=== PATIENT | male | born 1940 | race Caucasian/White ===

== ENCOUNTER → 2017-05-13 09:50 | Outpatient (CLI) | payer MEDICARE, SELFPAY ==
[2017-05-13 12:29] LABS: Anion Gap 4 (5-15); BUN 23 mg/dL (7-18); BUN/Creat Ratio 20.4 RATIO (10-20); Calcium,Total 8.8 mg/dL (8.5-10.1); Chloride 108 mmol/L (98-107); Cholesterol 158 mg/dL (200); Creatinine, Serum 1.13 mg/dL (0.70-1.30); EST Glomerular Filtration Rate 67 mL/min (>60); Est Glom Filt Rate - Afr Amer 81 mL/min (>60); Glucose 93 mg/dL (74-106); High Density Lipoprotein 36 mg/dL; PSA,Total - Annual Screen 1.99 ng/mL (0.00-4.00); Potassium 4.3 mmol/L (3.5-5.1); Sodium Level 140 mmol/L (136-145); Triglycerides 88 mg/dL; Very Low Density Lipoprotein 18 mg/dL (5-40)
== END ==
DX: E78.5 Hyperlipidemia, unspecified (principal); Z12.5 Encounter for screening for malignant neoplasm of prostate
CPT/HCPCS: 36415; 80048; 80061; 84153; G0103

== ENCOUNTER → 2017-06-30 11:29 | Outpatient (CLI) | payer MEDICARE, SELFPAY ==
--- NOTE | 2017-06-30 11:39 | RAD_ITS ---
STUDY: X-RAY CHEST REASON FOR EXAM: Male, 76 years old. Nonproductive cough TECHNIQUE: Single AP portable view of the chest. COMPARISON: None. FINDINGS: The lungs are clear and expanded. There is no demonstrated pleural abnormality. Normal size heart. Normal mediastinum and kai. Normal visualized pulmonary arteries. Normal visualized aortic arch and descending thoracic aorta. Normal visualized thoracic spine. Normal visualized ribs, clavicles, and shoulders. There is no demonstrated abnormality of the visualized soft tissue structures of the upper abdomen. RAD/Chest PA and Lateral IMPRESSION: Normal x-ray examination of the chest. Electronically Signed: Raza Mcgee MD at 11:55 EDT , Service support ,
== END ==
DX: J44.9 Chronic obstructive pulmonary disease, unspecified (principal)
CPT/HCPCS: 71046

== ENCOUNTER → 2018-05-22 08:27 | Outpatient (CLI) | payer MEDICARE, SELFPAY ==
[2018-05-22 11:02] LABS: Anion Gap 8 (5-15); BUN 22 mg/dL (7-18); BUN/Creat Ratio 19.3 RATIO (10-20); Calcium,Total 8.5 mg/dL (8.5-10.1); Chloride 104 mmol/L (98-107); Cholesterol 167 mg/dL (200); Creatinine, Serum 1.14 mg/dL (0.70-1.30); EST Glomerular Filtration Rate 66 mL/min (>60); Est Glom Filt Rate - Afr Amer 80 mL/min (>60); Glucose 99 mg/dL (74-106); High Density Lipoprotein 38 mg/dL; PSA,Total - Annual Screen 2.79 ng/mL (0.00-4.00); Potassium 4.1 mmol/L (3.5-5.1); Sodium Level 138 mmol/L (136-145); T4 Free Direct 1.07 ng/dL (0.76-1.46); Triglycerides 70 mg/dL; Very Low Density Lipoprotein 14 mg/dL (5-40)
--- OUTSIDE RECORDS SUMMARY | 2018-06-28 23:40 | XMS RPT_ITS ---
:1940 Author Organization [facility] Care Team Providers Name Role Phone SRINIVAS RUTLEDGE Attending Unavailable SRINIVAS RUTLEDGE Referring Unavailable SRINIVAS RUTLEDGE Primary Care Unavailable Jhonny Gunderson Attending Unavailable Jhonny Gunderson Referring Unavailable SRINIVAS RUTLEDGE Primary Care Unavailable SRINIVAS RUTLEDGE Attending Unavailable SRINIVAS RUTLEDGE Referring Unavailable SRINIVAS RUTLEDGE Primary Care Unavailable SRINIVAS RUTLEDGE Attending Unavailable SRINIVAS RUTLEDGE Referring Unavailable SRINIVAS RUTLEDGE Primary Care Unavailable PROBLEMS PROBLEMS DATE TYPE CONDITION / CODE ATTENDING STATUS SOURCE 04/24/2018 Unknown E03.9 - SRINIVAS RUTLEDGE Active [facility] Hypothyroidism, [facility] unspecified / Hospital E03.9(ICD-10) Repository 04/24/2018 Unknown E78.5 - SRINIVAS RUTLEDGE Active [facility] Hyperlipidemia, Community unspecified / Hospital E78.5(ICD-10) Repository 07/25/2017 Unknown R22.1 - Localized Jhonny Gunderson Active [place] swelling, mass Community and lump, neck / Hospital R22.1(ICD-10) Repository 06/30/2017 Unknown 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 STUDY: X-RAY CHEST REASON FOR EXAM: Male, 76 years old. Nonproductive cough TECHNIQUE: Single AP portable view of the chest. COMPARISON: None. FINDINGS: The lungs are clear and expanded. There is no demonstrated pleural abnormality. Normal size heart. Normal mediastinum and kai. Normal visualized pulmonary arteries. Normal visualized aortic arch and descending thoracic aorta. Normal visualized thoracic spine. Normal visualized ribs, clavicles, and shoulders. There is no demonstrated abnormality of the visualized soft tissue structures of the upper abdomen. RAD/Chest PA and Lateral IMPRESSION: Normal x-ray examination of the chest. Electronically Signed: Raza Mcgee MD at 11:55 EDT , Service support , CC: [facility] DOCTOR Weed Thinner: Signed BASIC METABOLIC Collected: 05/13/2017 Status: F Source: NICOLE PROFILE (BMP) 10:01 AM [facility] REPOSITORY TYPE CODE TESTS RESULT OUT OF RANGE REFERENCE UNITS LAB L501.0100 74-106 mg/dL Normal GLU 93 LAB L501.1000 7-18 mg/dL High BUN 23 LAB L501.1100 0.70-1.30 mg/dL Normal 1.13 CREAT,SERUM Result Comment: The validity of the calculated GFR AND GFRAA in patients over 70 years has not been determined. Clinical correlation is essential. LAB L501.1110 >60 mL/min Normal EST GFR 67 Result Comment: Non- GFR Calc LAB L501.1115 >60 mL/min Normal EST GFR - AA 81 Result Comment: GFR Calc LAB L501.1300 10-20 RATIO High BUN/CRE 20.4 LAB L501.2200 8.5-10.1 mg/dL CA Normal 8.8 LAB L501.5300 136-145 mmol/L NA Normal 140 LAB L501.5600 3.5-5.1 mmol/L K Normal 4.3 LAB L501.5900 98-107 mmol/L High CL 108 LAB L501.6100 21.0-32.0 mmol/L Normal CO2 28.0 LAB L501.6200 5-15 Low GAP 4 Performed By: #### L500.2500, L500.4100, L501.9910 #### [facility] [address] [place], [address] LIPID PROFILE Collected: 05/13/2017 Status: F Source: ELGIN 10:01 AM [facility] REPOSITORY TYPE CODE TESTS RESULT OUT OF RANGE REFERENCE UNITS LAB L501.4900 200 mg/dL Normal CHOL 158 Result Comment: <200 mg/dL Desirable 200-240 mg/dL Borderline >240 mg/dL High Risk LAB L501.5000 mg/dL Normal TRIG 88 Result Comment: The drugs N-Acetylcysteine and Metamizole may falsely depress this assay. Serum Triglycerides Reference Interval Normal <150 mg/dL Borderline high 150 - 199 mg/dL High 200 - 499 mg/dL Very High > or = 500 mg/dL LAB L501.6400 mg/dL Low HDL 36 Result Comment: The drugs N-Acetylcysteine and Metamizole may falsely depress this assay. Reference Range HDL <40 mg/dL Low HDL Cholesterol HDL >or= 60 mg/dL High HDL Cholesterol LAB L501.6500 0-130 mg/dL Normal LDL 104 LAB L501.6600 5-40 mg/dL Normal VLDL 18 Performed By: #### L500.2500, L500.4100, L501.9910 #### [facility] [address] [place], [address] PSA,TOTAL - ANNUAL Collected: 05/13/2017 Status: F Source: NICOLE SCREEN 10:01 AM [facility] REPOSITORY TYPE CODE TESTS RESULT OUT OF RANGE REFERENCE UNITS LAB L501.9910 0.00-4.00 ng/mL Normal PSA,TOT 1.99 SCREEN Result Comment: This test was performed using the TPSA assay method for the [employer] chemistry system. Values obtained with different assay methods cannot be used interchangably. When changing PSA assays in the course of monitoring a patient, additional sequential testing should be carried out to confirm baseline values. Performed By: #### L500.2500, L500.4100, L501.9910 #### [facility] [address] [place], [address] ALLERGIES ALLERGIES No Allergies Records FoundENCOUNTERS ENCOUNTERS ADMIT/DISCHARGE ACCOUNT ADMITTING ENCOUNTER LOCATION SOURCE NUMBER CLASS 04/24/2018 [id number] Ambulatory [facility] 6 [facility] ing:MTLAB Repository 07/31/2017 [id number] Ambulatory [place] Nicole 3 [facility] ing:LAB Repository 06/30/2017 [id number] Ambulatory Nicole [facility] 5 [facility] ing:MTRAD Repository 05/13/2017 [id number] Ambulatory Nicole Nicole 0 [facility] ing:MTLAB Repository PAYERS PAYERS ENCOUNTER GUARANTOR PAYER SUBSCRIBER SOURCE 04/24/2018 Tyrone Davis Primary Tyrone Gamezyusuf [id number] TR Insurance:CHET SorensonB: [facility] [address] MEDICARE [facility] [id number] Hospital [address]Ver: [phone]) Number: Repository [phone] () [id number] Date:5438-25-26VB [id number] [place] [address]YE: 04/24/2018 Secondary NOT GIVENUNK Nicole Insurance:SELF PAY [facility] Number: Effective Repository Date:2018-04-24 07/31/2017 Tyrone Davis Primary Tyrone Rivera [id number] TR Insurance:CHET SorensonB: [facility] [address], [place] MEDICARE PPOPolicy [id number] Hospital [address]Hwt: [phone]) Number: Repository [phone] () [id number] Date:0763-06-63MQ [address] [place] [address]MS: 07/31/2017 Secondary NOT GIVENUNK [place] Insurance:SELF PAY [facility] Number: Effective Repository Date:2017-07-25 06/30/2017 Tyrone Davis Primary Tyrone Rivera [id number] TR Insurance:ANTHEM WileyDOB: Community [address] MEDICARE PPOPolicy [id number] Hospital [address]Sqo: [phone] Number: Repository [phone] () [id number] Date:5851-60-46CD [id number] [place] [address]ZV: 06/30/2017 Secondary NOT GIVENUNK Nicole Insurance:SELF PAY [facility] Number: Effective Repository Date:2017-06-30 05/13/2017 Tyrone C Primary Tyrone Rivera [id number] Insurance:ANTHEM WileyDOB: [address] MEDICARE PPOPolicy [id number] Number: Repository [id number]: [phone] [id number] [phone] () Date:1223-74-60DB [id number] [place] [address]WT: 05/13/2017 Secondary NOT GIVENUNK Nicole Insurance:SELF PAY [facility] Number: Effective Repository Date:2017-05-13
== END ==
DX: E03.9 Hypothyroidism, unspecified (principal); E78.5 Hyperlipidemia, unspecified; Z12.5 Encounter for screening for malignant neoplasm of prostate
CPT/HCPCS: 36415; 80048; 80061; 84153; 84439; G0103

== ENCOUNTER → 2019-05-26 08:33 | Outpatient (CLI) | payer MEDICARE, SELFPAY ==
[2019-05-26 10:55] LABS: Anion Gap 4 (5-15); BUN 25 mg/dL (7-18); BUN/Creat Ratio 19.5 RATIO (10-20); Calcium,Total 9.5 mg/dL (8.5-10.1); Chloride 105 mmol/L (98-107); Cholesterol 183 mg/dL (200); Creatinine, Serum 1.28 mg/dL (0.70-1.30); EST Glomerular Filtration Rate 58 mL/min (>60); Est Glom Filt Rate - Afr Amer 70 mL/min (>60); Glucose 90 mg/dL (74-106); High Density Lipoprotein 40 mg/dL; PSA,Total - Annual Screen 2.79 ng/mL (0.00-4.00); Potassium 4.5 mmol/L (3.5-5.1); Sodium Level 138 mmol/L (136-145); T4 Free Direct 1.08 ng/dL (0.76-1.46); Triglycerides 83 mg/dL; Very Low Density Lipoprotein 17 mg/dL (5-40)
== END ==
DX: R00.1 Bradycardia, unspecified (principal); Z12.5 Encounter for screening for malignant neoplasm of prostate; I48.20 Chronic atrial fibrillation, unspecified; E78.5 Hyperlipidemia, unspecified; E03.9 Hypothyroidism, unspecified
CPT/HCPCS: 36415; 80048; 80061; 84153; 84439; 84443; G0103

== ENCOUNTER → 2019-11-08 12:21 | Outpatient (CLI) | payer MEDICARE, SELFPAY ==
[2019-11-08 15:24] LABS: Rheumatoid Factor < 10.0 IU/mL (<15)
[2019-11-08 15:28] LABS: Vitamin B12 472 pg/mL (211-911)
[2019-11-08 15:48] LABS: Erythrocyte Sedimentation Rate 11 mm/hr (0-20)
[2019-11-10 14:43] LABS: ANTINUCLEAR ANTIBODIES DIRECT Negative (Negative)
== END ==
DX: M15.0 Primary generalized (osteo)arthritis (principal); G90.09 Other idiopathic peripheral autonomic neuropathy; M06.9 Rheumatoid arthritis, unspecified
CPT/HCPCS: 36415; 82607; 85652; 86038; 86431

== ENCOUNTER → 2020-07-20 09:10 | Outpatient (CLI) | payer MEDICARE, SELFPAY ==
[2020-07-20 10:26] LABS: Hematocrit 46.5 % (40-54); Hemoglobin 14.9 g/dL (13.0-16.5); Mean Corpuscular Hgb 31.9 pg (27.0-32.0); Mean Corpuscular Volume 99.6 fL (80-94); Platelet Count 270 K/mm3 (150-450); RBC Distribution Width CV 12.2 % (11.6-14.6); RBC Distribution Width SD 44.9 fl (35.1-43.9); Red Blood Count 4.67 M/mm3 (4.6-6.2); White Blood Count 7.6 K/mm3 (4.4-11.0)
[2020-07-20 11:03] LABS: AST(SGOT) 12 U/L (15-37); Alanine Aminotransfer ALT/SGPT 17 U/L (16-61); Albumin, Serum 3.7 g/dL (3.2-5.0); Alkaline Phosphatase 102 U/L (45-117); Anion Gap 4 (5-15); BUN 20 mg/dL (7-18); BUN/Creat Ratio 20.5 RATIO (10-20); Bilirubin, Direct 0.21 mg/dL (0.00-0.30); Calcium,Total 9.1 mg/dL (8.5-10.1); Chloride 107 mmol/L (98-107); Cholesterol 103 mg/dL (200); Creatinine, Serum 0.98 mg/dL (0.70-1.30); EST Glomerular Filtration Rate 79 mL/min (>60); Est Glom Filt Rate - Afr Amer 96 mL/min (>60); Glucose 96 mg/dL (74-106); High Density Lipoprotein 34 mg/dL; PSA,Total - Annual Screen 2.12 ng/mL (0.00-4.00); Potassium 4.3 mmol/L (3.5-5.1); Protein, Total 7.7 g/dL (6.4-8.2); Sodium Level 137 mmol/L (136-145); Triglycerides 120 mg/dL; Very Low Density Lipoprotein 24 mg/dL (5-40)
== END ==
DX: I20.0 Unstable angina (principal); E78.5 Hyperlipidemia, unspecified; N40.0 Benign prostatic hyperplasia without lower urinary tract symptoms
CPT/HCPCS: 36415; 80048; 80061; 80076; 84153; 85027; G0103

== ENCOUNTER 2021-08-06 08:02 | Outpatient (CLI) | payer MEDICARE, SELFPAY ==
[2021-08-06 10:02] LABS: Hematocrit 44.4 % (40-54); Hemoglobin 14.6 g/dL (13.0-16.5); Mean Corp Hgb Conc 32.9 g/dL (32-36); Mean Corpuscular Hgb 32.1 pg (27.0-32.0); Mean Corpuscular Volume 97.6 fL (80-94); Mean Platelet Vol. 9.2 fl (6.2-12.0); Platelet Count 276 K/mm3 (150-450); RBC Distribution Width CV 11.9 % (11.6-14.6); RBC Distribution Width SD 42.7 fl (35.1-43.9); Red Blood Count 4.55 M/mm3 (4.6-6.2); White Blood Count 7.4 K/mm3 (4.4-11.0)
[2021-08-06 10:20] LABS: AST(SGOT) 15 U/L (15-37); Alanine Aminotransfer ALT/SGPT 20 U/L (16-61); Albumin, Serum 3.4 g/dL (3.2-5.0); Alkaline Phosphatase 87 U/L (45-117); Anion Gap 3 (5-15); BUN 15 mg/dL (7-18); BUN/Creat Ratio 14.6 RATIO (10-20); Calcium,Total 8.7 mg/dL (8.5-10.1); Chloride 108 mmol/L (98-107); Cholesterol 101 mg/dL (200); Creatinine, Serum 1.03 mg/dL (0.70-1.30); EST Glomerular Filtration Rate 74 mL/min (>60); Est Glom Filt Rate - Afr Amer 90 mL/min (>60); Globulin 3.9 g/dL (2.2-4.2); Glucose 102 mg/dL (74-106); High Density Lipoprotein 29 mg/dL; PSA,Total - Annual Screen 2.27 ng/mL (0.00-4.00); Potassium 4.2 mmol/L (3.5-5.1); Protein, Total 7.3 g/dL (6.4-8.2); Sodium Level 139 mmol/L (136-145); T4 Total, Thyroxin 8.9 ug/dL (4.5-12.1); Triglycerides 89 mg/dL; Very Low Density Lipoprotein 18 mg/dL (5-40)
[2021-08-06 10:22] LABS: Hemoglobin A1c 5.5 % (3.8-5.6)
[2021-08-07 15:26] LABS: Thyroid Stim Hormone (TSH) 0.02 uIU/mL (0.358-3.74)
== END 2021-08-06 23:59 | disposition home or self-care (01) ==
PROVIDERS: Visit Provider Internal Medicine Cardiovascular Disease
DX: I10 Essential (primary) hypertension (principal); I42.0 Dilated cardiomyopathy; E03.9 Hypothyroidism, unspecified; N40.0 Benign prostatic hyperplasia without lower urinary tract symptoms; E78.5 Hyperlipidemia, unspecified; Z12.5 Encounter for screening for malignant neoplasm of prostate
CPT/HCPCS: 36415; 80048; 80061; 80076; 83036; 84153; 84436; 84443; 85027; G0103

== ENCOUNTER → 2022-04-22 | Outpatient (CLI) | payer MEDICARE, SELFPAY ==
[2022-04-22 10:39] LABS: AST(SGOT) 15 U/L (15-37); Alanine Aminotransfer ALT/SGPT 16 U/L (16-61); Albumin, Serum 3.6 g/dL (3.2-5.0); Alkaline Phosphatase 113 U/L (45-117); Anion Gap 3 (5-15); BUN 17 mg/dL (7-18); Bilirubin, Direct 0.23 mg/dL (0.00-0.30); Calcium,Total 8.6 mg/dL (8.5-10.1); Chloride 110 mmol/L (98-107); Cholesterol 103 mg/dL (200); Creatinine, Serum 1.06 mg/dL (0.70-1.30); EST Glomerular Filtration Rate 72 mL/min (>60); Est Glom Filt Rate - Afr Amer 87 mL/min (>60); Globulin 3.7 g/dL (2.2-4.2); Glucose 102 mg/dL (74-106); High Density Lipoprotein 37 mg/dL; Potassium 4.1 mmol/L (3.5-5.1); Protein, Total 7.3 g/dL (6.4-8.2); Sodium Level 142 mmol/L (136-145); T4 Free Direct 1.22 ng/dL (0.76-1.46); Thyroid Stim Hormone (TSH) 0.03 uIU/mL (0.358-3.74); Triglycerides 59 mg/dL; Very Low Density Lipoprotein 12 mg/dL (5-40)
== END | disposition home or self-care (01) ==
LOC: MTLAB 08:03
PROVIDERS: Referring Provider Internal Medicine Cardiovascular Disease; Visit Provider Internal Medicine Cardiovascular Disease
DX: E03.9 Hypothyroidism, unspecified (principal); N17.9 Acute kidney failure, unspecified; E78.5 Hyperlipidemia, unspecified
CPT/HCPCS: 36415; 80048; 80061; 80076; 84439; 84443

== ENCOUNTER → 2022-07-10 | Outpatient (CLI) | payer MEDICARE, SELFPAY ==
[2022-07-10 18:33] LABS: AST(SGOT) 18 U/L (15-37); Alanine Aminotransfer ALT/SGPT 18 U/L (16-61); Albumin, Serum 3.6 g/dL (3.2-5.0); Alkaline Phosphatase 96 U/L (45-117); Amylase 41 U/L (25-115); Anion Gap 4 (5-15); BUN 16 mg/dL (7-18); BUN/Creat Ratio 14.8 RATIO (10-20); Bilirubin, Direct 0.24 mg/dL (0.00-0.30); Calcium,Total 9.4 mg/dL (8.5-10.1); Chloride 108 mmol/L (98-107); Cholesterol 93 mg/dL (200); Creatinine, Serum 1.08 mg/dL (0.70-1.30); EST Glomerular Filtration Rate 70 mL/min (>60); Est Glom Filt Rate - Afr Amer 85 mL/min (>60); Globulin 3.7 g/dL (2.2-4.2); Glucose 93 mg/dL (74-106); High Density Lipoprotein 36 mg/dL; Lipase 82 U/L (73-393); PSA,Total - Annual Screen 2.58 ng/mL (0.00-4.00); Potassium 4.2 mmol/L (3.5-5.1); Protein, Total 7.3 g/dL (6.4-8.2); Sodium Level 139 mmol/L (136-145); T4 Free Direct 1.22 ng/dL (0.76-1.46); Thyroid Stim Hormone (TSH) 0.02 uIU/mL (0.358-3.74); Triglycerides 53 mg/dL; Very Low Density Lipoprotein 11 mg/dL (5-40)
== END | disposition home or self-care (01) ==
PROVIDERS: PCP Internal Medicine Cardiovascular Disease; Referring Provider Internal Medicine Cardiovascular Disease; Visit Provider Internal Medicine Cardiovascular Disease
DX: I25.10 Atherosclerotic heart disease of native coronary artery without angina pectoris (principal); K51.00 Ulcerative (chronic) pancolitis without complications; E78.5 Hyperlipidemia, unspecified; M18.9 Osteoarthritis of first carpometacarpal joint, unspecified; K29.00 Acute gastritis without bleeding; Z12.5 Encounter for screening for malignant neoplasm of prostate
CPT/HCPCS: 36415; 80048; 80061; 80076; 82150; 83690; 84153; 84439; 84443; G0103

== ENCOUNTER → 2022-07-23 | Outpatient (CLI) | payer MEDICARE, SELFPAY ==
[2022-07-26 12:09] LABS: H. PYLORI STOOL AG Negative (Negative)
== END | disposition home or self-care (01) ==
LOC: MTLAB 09:51
PROVIDERS: PCP Internal Medicine Cardiovascular Disease; Referring Provider Internal Medicine Cardiovascular Disease; Visit Provider Internal Medicine Cardiovascular Disease
DX: I25.10 Atherosclerotic heart disease of native coronary artery without angina pectoris (principal); E78.5 Hyperlipidemia, unspecified; M18.9 Osteoarthritis of first carpometacarpal joint, unspecified; K29.00 Acute gastritis without bleeding; R51.0 Headache with orthostatic component, not elsewhere classified
CPT/HCPCS: 87338; 87493

== ENCOUNTER → 2022-10-16 | Outpatient (CLI) | payer MEDICARE, SELFPAY ==
[2022-10-16 15:06] LABS: Hematocrit 42.7 % (40-54); Hemoglobin 13.6 g/dL (13.0-16.5); Mean Corp Hgb Conc 31.9 g/dL (32-36); Mean Corpuscular Hgb 31.7 pg (27.0-32.0); Mean Corpuscular Volume 99.5 fL (80-94); Mean Platelet Vol. 8.6 fl (6.2-12.0); Platelet Count 401 K/mm3 (150-450); RBC Distribution Width CV 12.6 % (11.6-14.6); RBC Distribution Width SD 45.7 fl (35.1-43.9); Red Blood Count 4.29 M/mm3 (4.6-6.2); White Blood Count 8.5 K/mm3 (4.4-11.0)
[2022-10-16 15:33] LABS: Anion Gap 6 (5-15); BUN 19 mg/dL (7-18); BUN/Creat Ratio 17.6 RATIO (10-20); Calcium,Total 8.8 mg/dL (8.5-10.1); Chloride 107 mmol/L (98-107); Creatinine, Serum 1.08 mg/dL (0.70-1.30); EST Glomerular Filtration Rate 70 mL/min (>60); Est Glom Filt Rate - Afr Amer 85 mL/min (>60); Glucose 79 mg/dL (74-106); Potassium 4.1 mmol/L (3.5-5.1); Sodium Level 138 mmol/L (136-145)
[2022-10-16 15:35] LABS: BNP,B-Type NATRIURETIC PEPTIDE 178.3 pg/mL (0-100)
== END | disposition home or self-care (01) ==
LOC: MTLAB 14:14
PROVIDERS: PCP Internal Medicine Cardiovascular Disease; Referring Provider Internal Medicine Cardiovascular Disease; Visit Provider Internal Medicine Cardiovascular Disease
DX: I25.10 Atherosclerotic heart disease of native coronary artery without angina pectoris (principal); I50.30 Unspecified diastolic (congestive) heart failure; I70.90 Unspecified atherosclerosis
CPT/HCPCS: 36415; 80048; 83880; 85027

== ENCOUNTER 2022-11-25 08:12 | Outpatient (CLI) | payer MEDICARE, SELFPAY ==
--- NOTE | 2022-11-25 09:10 | RAD_ITS ---
STUDY: X-RAY CHEST REASON FOR EXAM: Male, 82 years old. Evaluate for pneumonia. TECHNIQUE: Frontal and lateral views of the chest. COMPARISON: Chest dated June 2017. FINDINGS: Stable hyperinflation. Patchy opacity in the lingular segment of the left upper lobe compatible with early/developing pneumonia. Follow-up chest imaging to resolution recommended. There is no demonstrated pleural abnormality. Cardiomegaly with aortic tortuosity and calcification. Apparent loop recorder, unchanged. Normal mediastinum and kai. Normal visualized pulmonary arteries. Normal visualized aortic arch and descending thoracic aorta. Normal visualized thoracic spine. Normal visualized ribs, clavicles, and shoulders. No abnormality of the visualized soft tissue structures of the upper abdomen. RAD/Chest PA and Lateral IMPRESSION: Stable hyperinflation with interval development of patchy opacity in the lingular segment of the left upper lobe compatible with early/developing pneumonia. Follow-up chest imaging to resolution recommended. Electronically Signed: Mejia Saleh MD at 9:36 EDT ,
[2022-11-25 10:37] LABS: Erythrocyte Sedimentation Rate 30 mm/hr (0-20)
[2022-11-25 11:26] LABS: AST(SGOT) 15 U/L (15-37); Alanine Aminotransfer ALT/SGPT 13 U/L (16-61); Albumin, Serum 3.5 g/dL (3.2-5.0); Alkaline Phosphatase 107 U/L (45-117); Bilirubin, Direct 0.23 mg/dL (0.00-0.30); Globulin 4.1 g/dL (2.2-4.2); Protein, Total 7.6 g/dL (6.4-8.2); T4 Free Direct 1.18 ng/dL (0.76-1.46); Thyroid Stim Hormone (TSH) 0.03 uIU/mL (0.358-3.74)
[2022-11-26 05:07] LABS: Carcinoembryonic Antigen 5.4 ng/mL (0.0-4.7)
== END 2022-11-25 23:59 | disposition home or self-care (01) ==
LOC: MTLAB 08:14
PROVIDERS: PCP Internal Medicine Cardiovascular Disease; Referring Provider Internal Medicine Cardiovascular Disease; Visit Provider Internal Medicine Cardiovascular Disease
DX: K52.9 Noninfective gastroenteritis and colitis, unspecified (principal); I25.10 Atherosclerotic heart disease of native coronary artery without angina pectoris; E03.9 Hypothyroidism, unspecified; J15.9 Unspecified bacterial pneumonia
CPT/HCPCS: 71046; 80076; 82378; 84439; 84443; 85652

== ENCOUNTER → 2024-06-09 | Outpatient (CLI) | payer MEDICARE, SELFPAY ==
[2024-06-09 17:52] LABS: Hemoglobin 14.7 g/dL (13.0-16.5); Mean Corp Hgb Conc 32.7 g/dL (32-36); Mean Corpuscular Hgb 32.2 pg (27.0-32.0); Mean Corpuscular Volume 98.7 fL (80-94); Platelet Count 198 K/mm3 (150-450); RBC Distribution Width CV 12.7 % (11.6-14.6); RBC Distribution Width SD 45.7 fl (35.1-43.9); Red Blood Count 4.56 M/mm3 (4.6-6.2); White Blood Count 6.3 K/mm3 (4.4-11.0)
[2024-06-09 19:52] LABS: AST(SGOT) 16 U/L (<=37); Alanine Aminotransfer ALT/SGPT 8 U/L (<=46); Alkaline Phosphatase 91 U/L (40-129); Anion Gap 11 (5-15); BUN 22 mg/dL (4-19); BUN/Creat Ratio 19.1 RATIO (10-20); Bilirubin, Direct 0.58 mg/dL (0.00-0.30); Calcium,Total 9.1 mg/dL (7.6-11.0); Carbon Dioxide 24.1 mmol/L (21.0-32.0); Chloride 104 mmol/L (98-108); Cholesterol 124 mg/dL (<=200); Creatinine, Serum 1.17 mg/dL (0.70-1.20); EST Glomerular Filtration Rate 63 (>60); Globulin 3.2 g/dL (2.2-4.2); Glucose 88 mg/dL (70-99); High Density Lipoprotein 40 mg/dL; Low Density Lipoprotein Calc. 70 mg/dL; Potassium 4.3 mmol/L (3.3-5.1); Protein, Total 7.1 g/dL (5.9-8.4); Sodium Level 138 mmol/L (133-145); Thyroid Stim Hormone (TSH) 0.069 uIU/mL (0.300-4.200); Total Bilirubin 1.37 mg/dL (0.00-1.30); Triglycerides 66 mg/dL; Very Low Density Lipoprotein 13 mg/dL (5-40); cholesterol:hdl ratio screen 3.07
== END | disposition home or self-care (01) ==
LOC: MTLAB 16:16
PROVIDERS: PCP Internal Medicine Cardiovascular Disease; Referring Provider Internal Medicine Cardiovascular Disease; Visit Provider Internal Medicine Cardiovascular Disease
DX: E03.9 Hypothyroidism, unspecified (principal); I48.0 Paroxysmal atrial fibrillation; E78.5 Hyperlipidemia, unspecified; I25.10 Atherosclerotic heart disease of native coronary artery without angina pectoris
CPT/HCPCS: 36415; 80048; 80061; 80076; 84439; 84443; 85027